=== PATIENT | male | born 1970 | race American Indian/Alaskan Native ===

== ENCOUNTER 2021-02-04 09:28 | Inpatient (IN) | payer MEDICAID ==
--- NOTE | 2021-02-05 10:12 | History and Physical Report ---
GP History & Physical - History of Present Illness Date of admission: 02/04/21 Date of Examination: 02/05/21 Reason for Admission: Danger to self, Failure of Outpatient Treatment, Severe anxiety/depression History of Present Illness: Morgan Ugarte is a 50y/o male patient who states he was admitted for playing [place]. The patient says since he lost his daughter two years ago he has not wanted to live without her and feels he would be better with her. He says he keeps "seeing her mangled face." The patient also says he hears voices of celebrities and his god-sisters. He verbalizes crack cocaine as his "preference." But states he uses meth, heroine and also vapes nicotine. PAST PSYCHIATRIC HISTORY: Diagnoses: Bipolar, schizophrenia Suicide attempts or Self-harm behavior: Yes Prior psychiatric hospitalizations: Yes Substance Abuse history: crack, cocaine, meth, nicotine, heroine Previous psychiatric medications tried: seroquel, risperidone Outpatient treatment: Yes PAST MEDICAL HISTORY: None reported or document Family Psychiatric History: None reported or documented SOCIAL HISTORY Marital Status: Living Arrangements: Lives with family Employment Status: Disabled Access to guns/weapons: Denies Education:Some college History of Abuse: Yes Legal History: Unknown REVIEW OF SYSTEMS Constitutional: Negative for weight loss ENT: Negative for stridor Respiratory: Negative for cough or hemoptysis All other systems reviewed and are negative MENTAL STATUS EXAMINATION General Appearance and Behavior: Age appropriate, good hygiene, wearing appropriate clothes. Cooperation: cooperative Psychomotor Behavior: Psychomotor normal Mood: Depressed Affect and affective range: congruent with stated mood Thought Process: obsessions Thought Content: SI, hallucinations Speech: Normal volume, Regular rate and rhythm, Suicidal Ideation: Yes Homicidal Ideation: Denies Hallucinations: Auditory Delusions: None Impulse Control: Poor Insight and Judgment: Poor Memory: limited Attention: Attentive Orientation: alert and oriented Assessment and Plan (1)Bipolar Disorder (2) Polysubstance Use Disorder Treatment Plan Patient admitted for inpatient psychiatric evaluation, medication adjustment and close monitoring The patient's behavior, mood, sleep and appetite will be closely monitored. Patient enrolled in individual and group therapeutic sessions and encouraged to attend. Patient provided with a safe and structured environment. Patient's physical health needs will be addressed by the Hospitalist. Hospitalist Consulted Labs including CBC, CMP, Lipid profile and Hemoglobin A1C levels ordered for baseline reference Social Assessment will be completed and the Front End Loader Operator will work with patient and family to ensure a suitable and safe disposition Medication adjustment will be made as clinically indicated Start Seroquel 100mg po BID Start Zoloft 25mg po daily Geodon 20mg IM prn agitation Usual Wellness Roman Catholic/Preservation: - Start Trazodone 50 mg po QHS & 50 mg po QHS PRN between 10 PM & 2 AM for insomnia - Start Melatonin 5 mg po QHS to promote circadian rhythm The patient agreed on the treatment plan, understood the risk, benefit, alternative treatment, potential consequence of no treatment, and gave informed consent. Estimated days: 7 Post hospital care: primary care provider, psychiatric provider Case staffed with Dr. Floyd Legal Status: Voluntary Reaction to Hospitalization: Accepting Medications and Allergies Allergies Allergy/AdvReac Type Severity Reaction Status Date / Time No Known Allergies Allergy Unverified 02/04/21 16:14 Results - Results Labs/Vitals: Last Vital Signs Temp 98.7 F 02/05/21 02:05 Pulse 62 02/05/21 02:05 Resp 18 02/05/21 02:05 BP 139/71 02/05/21 02:05 Pulse Ox 100 02/05/21 02:05 Physical Examination - Constitutional Vitals: Vital Signs Temp Pulse Resp BP Pulse Ox 98.7 F 62 18 139/71 100 02/05/21 02:05 02/05/21 02:05 02/05/21 02:05 02/05/21 02:05 02/05/21 02:05 Temperature -Last 24 Hours Temperature 98.7 F Mental Status Exam - Vital signs Last Vital Signs Temp 98.7 F 02/05/21 02:05 Pulse 62 02/05/21 02:05 Resp 18 02/05/21 02:05 BP 139/71 02/05/21 02:05 Pulse Ox 100 02/05/21 02:05 Physician Certification - Certification Statement Physician Certification Statement: This is an acknowledgement statement that MORGAN UGARTE is a 50 year old M who requires inpatient psychiatric admission for treatment which could reasonably be expected to improve the patient's condition for Estimated period of time patient will need to remain in the hospital: [ ] Plan for post-hospital care: [ ]
--- NOTE | 2021-02-05 10:55 | Consultation ---
Medications and Allergies Allergies Allergy/AdvReac Type Severity Reaction Status Date / Time No Known Allergies Allergy Unverified 02/04/21 16:14 Active Meds: Active Medications Quetiapine Fumarate (Quetiapine 100 Mg Tab) 100 mg PO BID [facility] Sertraline HCl (Sertraline 25 Mg Tab) 25 mg PO QDAY [facility] Ziprasidone (Ziprasidone Mesylate 20 Mg Vial) 20 mg IM Q4H PRN PRN Reason: Agitation Exam - Constitutional Vitals: Temp Pulse Resp BP Pulse Ox 98.7 F 62 18 139/71 100 02/05/21 02:05 02/05/21 02:05 02/05/21 02:05 02/05/21 02:05 02/05/21 02:05
[2021-02-05] MEDS: QUEtiapine 100 MG TAB PO SCH ×3 (11:50→21:31)
[2021-02-05] MEDS: SERTRALINE 25 MG TAB PO SCH ×2 (11:50→11:51)
[2021-02-06] MEDS: ZIPRASIDONE MESYLATE 20 MG VIAL IM PRN (07:28)
[2021-02-06 09:20] LABS: Basophils % (Auto) 0.2 % (0.0-1.8); Eosinophils # (Auto) 0.1 K/mm3 (0.0-0.4); Eosinophils % (Auto) 1.7 % (0.0-4.3); Hematocrit 37.9 % (35.5-45.6); Hemoglobin 12.8 gm/dl (11.8-15.2); Lymphocytes % (Auto) 25.8 % (13.4-35.0); Mean Corpuscular HGB Conc 34 % (32-34); Mean Corpuscular Volume 90 fl (84-94); Monocytes # (Auto) 0.3 K/mm3 (0.0-0.8); Monocytes % (Auto) 7.7 % (0.0-7.3); Platelet Count 279 K/mm3 (140-440); Red Blood Count 4.21 M/mm3 (3.65-5.03); Red Cell Distribution Width 15.8 % (13.2-15.2)
[2021-02-06 09:32] LABS: Alanine Aminotransferase 25 units/L (7-56); Albumin 4.1 g/dL (3.9-5); Blood Urea Nitrogen 9 mg/dL (9-20); Calcium 8.9 mg/dL (8.4-10.2); Chol/HDL Ratio 3.68 %; HDL Cholesterol 51 mg/dL (40-59); Hemolysis Index 9; LDL Cholesterol,Direct 122 mg/dL (50-130)
[2021-02-06 09:33] LABS: BUN/Creatinine Ratio 13
--- NOTE | 2021-02-06 11:55 | Progress Note ---
Subjective Date of service: 02/06/21 Principal diagnosis: Bipolar Disorder Subjective Comment: The patient was seen today. He is lying in bed. He says he's doing okay. The patient denies SI/HI, but states he's hearing voices telling him to harm himself. Staff says the patient has been pacing, agitated, and banging on windows. REVIEW OF SYSTEMS Constitutional: Negative for weight loss ENT: Negative for stridor Respiratory: Negative for cough or hemoptysis All other systems reviewed and are negative MENTAL STATUS EXAMINATION General Appearance and Behavior: Age appropriate, good hygiene, wearing appropriate clothes. Cooperation: cooperative Psychomotor Behavior: Psychomotor normal Mood: Depressed Affect and affective range: congruent with stated mood Thought Process: obsessions Thought Content: SI, hallucinations Speech: Normal volume, Regular rate and rhythm, Suicidal Ideation: Yes Homicidal Ideation: Denies Hallucinations: Auditory Delusions: None Impulse Control: Poor Insight and Judgment: Poor Memory: limited Attention: Attentive Orientation: alert and oriented Assessment and Plan (1)Bipolar Disorder (2) Polysubstance Use Disorder Treatment Plan Patient admitted for inpatient psychiatric evaluation, medication adjustment and close monitoring The patient's behavior, mood, sleep and appetite will be closely monitored. Patient enrolled in individual and group therapeutic sessions and encouraged to attend. Patient provided with a safe and structured environment. Patient's physical health needs will be addressed by the Hospitalist. Hospitalist Consulted Labs including CBC, CMP, Lipid profile and Hemoglobin A1C levels ordered for baseline reference Social Assessment will be completed and the Machine Operator Helper will work with patient and family to ensure a suitable and safe disposition Medication adjustment will be made as clinically indicated Increase Seroquel 150mg po BID Start Klonopin 0.25mg po BID X [address] 125mg po BID Usual Wellness Rastafari/Preservation: - Start Trazodone 50 mg po QHS & 50 mg po QHS PRN between 10 PM & 2 AM for insomnia - Start Melatonin 5 mg po QHS to promote circadian rhythm The patient agreed on the treatment plan, understood the risk, benefit, alternative treatment, potential consequence of no treatment, and gave informed consent. Estimated days: 7 Post hospital care: primary care provider, psychiatric provider Case staffed with Dr. Floyd Medications and Allergies Allergies Allergy/AdvReac Type Severity Reaction Status Date / Time No Known Allergies Allergy Unverified 02/04/21 16:14 Active Meds: Active Medications Quetiapine Fumarate (Quetiapine 100 Mg Tab) 100 mg PO BID [facility] Last Admin: 02/05/21 21:31 Dose: 100 mg Documented by: Sertraline HCl (Sertraline 25 Mg Tab) 25 mg PO QDAY [facility] Last Admin: 02/05/21 11:50 Dose: Not Given Documented by: Ziprasidone (Ziprasidone Mesylate 20 Mg Vial) 20 mg IM Q4H PRN PRN Reason: Agitation Last Admin: 02/06/21 07:28 Dose: 20 mg Documented by: Results - Results Labs/Vitals: Laboratory Last Values WBC 3.9 K/mm3 (4.5-11.0) L 02/04/21 08:00 RBC 4.21 M/mm3 (3.65-5.03) 02/04/21 08:00 Hgb 12.8 gm/dl (11.8-15.2) 02/04/21 08:00 Hct 37.9 % (35.5-45.6) 02/04/21 08:00 MCV 90 fl (84-94) 02/04/21 08:00 MCH 31 pg (28-32) 02/04/21 08:00 MCHC 34 % (32-34) 02/04/21 08:00 RDW 15.8 % (13.2-15.2) H 02/04/21 08:00 Plt Count 279 K/mm3 (140-440) 02/04/21 08:00 Lymph % (Auto) 25.8 % (13.4-35.0) 02/04/21 08:00 [place] % (Auto) 7.7 % (0.0-7.3) H 02/04/21 08:00 Eos % (Auto) 1.7 % (0.0-4.3) 02/04/21 08:00 Baso % (Auto) 0.2 % (0.0-1.8) 02/04/21 08:00 Lymph # (Auto) 1.0 K/mm3 (1.2-5.4) L 02/04/21 08:00 [place] # (Auto) 0.3 K/mm3 (0.0-0.8) 02/04/21 08:00 Eos # (Auto) 0.1 K/mm3 (0.0-0.4) 02/04/21 08:00 Baso # (Auto) 0.0 K/mm3 (0.0-0.1) 02/04/21 08:00 Seg Neutrophils % 64.6 % (40.0-70.0) 02/04/21 08:00 Seg Neutrophils # 2.5 K/mm3 (1.8-7.7) 02/04/21 08:00 Sodium 137 mmol/L (137-145) 02/04/21 08:00 Potassium 3.5 mmol/L (3.6-5.0) L 02/04/21 08:00 Chloride 101.1 mmol/L (98-107) 02/04/21 08:00 Carbon Dioxide 24 mmol/L (22-30) 02/04/21 08:00 Anion Gap 15 mmol/L 02/04/21 08:00 BUN 9 mg/dL (9-20) 02/04/21 08:00 Creatinine 0.7 mg/dL (0.8-1.3) L 02/04/21 08:00 Estimated GFR > 60 ml/min 02/04/21 08:00 BUN/Creatinine Ratio 13 % 02/04/21 08:00 Glucose 98 mg/dL (75-100) 02/04/21 08:00 Hemoglobin A1c 5.4 % (4-6) 02/04/21 08:00 Calcium 8.9 mg/dL (8.4-10.2) 02/04/21 08:00 Total Bilirubin 0.60 mg/dL (0.1-1.2) 02/04/21 08:00 AST 34 units/L (5-40) 02/04/21 08:00 ALT 25 units/L (7-56) 02/04/21 08:00 Alkaline Phosphatase 73 units/L (35-129) 02/04/21 08:00 Total Protein 7.1 g/dL (6.3-8.2) 02/04/21 08:00 Albumin 4.1 g/dL (3.9-5) 02/04/21 08:00 Albumin/Globulin Ratio 1.4 % 02/04/21 08:00 Triglycerides 79 mg/dL (2-149) 02/04/21 08:00 Cholesterol 188 mg/dL (50-199) 02/04/21 08:00 LDL Cholesterol Direct 122 mg/dL (50-130) 02/04/21 08:00 HDL Cholesterol 51 mg/dL (40-59) 02/04/21 08:00 Cholesterol/HDL Ratio 3.68 % 02/04/21 08:00 TSH 0.713 mlU/mL (0.270-4.200) 02/04/21 08:00 Last Vital Signs Temp 98.1 F 02/06/21 08:00 Pulse 72 02/06/21 08:00 Resp 16 02/06/21 08:00 BP 107/63 02/06/21 08:00 Pulse Ox 97 02/06/21 08:00
[2021-02-06] MEDS: DIVALPROEX DR 125 MG TAB PO SCH ×2 (12:35→21:25)
[2021-02-06] MEDS: SERTRALINE 25 MG TAB PO SCH (12:36)
[2021-02-06] MEDS: QUEtiapine 100 MG TAB PO SCH ×3 (12:36→21:26)
[2021-02-06] MEDS: clonazePAM 0.5 MG TAB PO SCH ×2 (12:37→21:27)
--- NOTE | 2021-02-07 10:43 | Progress Note ---
Subjective Date of service: 02/07/21 Principal diagnosis: Bipolar Disorder Subjective Comment: The patient was seen today.He says he slept good. The nurse today did agree that the patient had a much better night, but says yesterday the patient was acting out. The patient denies SI/HI. He verbalizes auditory hallucinations, but states they are not harmful. He says "I've been hearing that since I was 28." I ask the patient why was he refusing his meds sometimes, he says "I don't want to be ove r-medicated." He then says "I'll take them." REVIEW OF SYSTEMS Constitutional: Negative for weight loss ENT: Negative for stridor Respiratory: Negative for cough or hemoptysis All other systems reviewed and are negative MENTAL STATUS EXAMINATION General Appearance and Behavior: Age appropriate, good hygiene, wearing appropriate clothes. Cooperation: cooperative Psychomotor Behavior: Psychomotor normal Mood: Depressed Affect and affective range: congruent with stated mood Thought Process: obsessions Thought Content: SI, hallucinations Speech: Normal volume, Regular rate and rhythm, Suicidal Ideation: Yes Homicidal Ideation: Denies Hallucinations: Auditory Delusions: None Impulse Control: Poor Insight and Judgment: Poor Memory: limited Attention: Attentive Orientation: alert and oriented Assessment and Plan (1)Bipolar Disorder (2) Polysubstance Use Disorder Treatment Plan Patient admitted for inpatient psychiatric evaluation, medication adjustment and close monitoring The patient's behavior, mood, sleep and appetite will be closely monitored. Patient enrolled in individual and group therapeutic sessions and encouraged to attend. Patient provided with a safe and structured environment. Patient's physical health needs will be addressed by the Hospitalist. Hospitalist Consulted Labs including CBC, CMP, Lipid profile and Hemoglobin A1C levels ordered for baseline reference Social Assessment will be completed and the Blood Bank Laboratory Technologist will work with patient and family to ensure a suitable and safe disposition Medication adjustment will be made as clinically indicated Continue Seroquel 150mg po BID Continue Klonopin 0.25mg po BID X [address] 125mg po BID Usual Wellness Christianity/Preservation: - Start Trazodone 50 mg po QHS & 50 mg po QHS PRN between 10 PM & 2 AM for insomnia - Start Melatonin 5 mg po QHS to promote circadian rhythm The patient agreed on the treatment plan, understood the risk, benefit, alternative treatment, potential consequence of no treatment, and gave informed consent. Estimated days: 7 Post hospital care: primary care provider, psychiatric provider Case staffed with Dr. Floyd Medications and Allergies Allergies Allergy/AdvReac Type Severity Reaction Status Date / Time No Known Allergies Allergy Unverified 02/04/21 16:14 Active Meds: Active Medications Clonazepam (Clonazepam 0.5 Mg Tab) 0.25 mg PO BID [facility] Stop: 02/09/21 06:00 Last Admin: 02/06/21 21:27 Dose: 0.25 mg Documented by: Divalproex Sodium (Divalproex Dr 125 Mg Tab) 125 mg PO BID [facility] Last Admin: 02/06/21 21:25 Dose: Not Given Documented by: Quetiapine Fumarate (Quetiapine 100 Mg Tab) 150 mg PO BID [facility] Last Admin: 02/06/21 21:26 Dose: 150 mg Documented by: Sertraline HCl (Sertraline 25 Mg Tab) 25 mg PO QDAY [facility] Last Admin: 02/06/21 12:36 Dose: 25 mg Documented by: Ziprasidone (Ziprasidone Mesylate 20 Mg Vial) 20 mg IM Q4H PRN PRN Reason: Agitation Last Admin: 02/06/21 07:28 Dose: 20 mg Documented by: Results - Results Labs/Vitals: Laboratory Last Values WBC 3.9 K/mm3 (4.5-11.0) L 02/04/21 08:00 RBC 4.21 M/mm3 (3.65-5.03) 02/04/21 08:00 Hgb 12.8 gm/dl (11.8-15.2) 02/04/21 08:00 Hct 37.9 % (35.5-45.6) 02/04/21 08:00 MCV 90 fl (84-94) 02/04/21 08:00 MCH 31 pg (28-32) 02/04/21 08:00 MCHC 34 % (32-34) 02/04/21 08:00 RDW 15.8 % (13.2-15.2) H 02/04/21 08:00 Plt Count 279 K/mm3 (140-440) 02/04/21 08:00 Lymph % (Auto) 25.8 % (13.4-35.0) 02/04/21 08:00 [place] % (Auto) 7.7 % (0.0-7.3) H 02/04/21 08:00 Eos % (Auto) 1.7 % (0.0-4.3) 02/04/21 08:00 Baso % (Auto) 0.2 % (0.0-1.8) 02/04/21 08:00 Lymph # (Auto) 1.0 K/mm3 (1.2-5.4) L 02/04/21 08:00 [place] # (Auto) 0.3 K/mm3 (0.0-0.8) 02/04/21 08:00 Eos # (Auto) 0.1 K/mm3 (0.0-0.4) 02/04/21 08:00 Baso # (Auto) 0.0 K/mm3 (0.0-0.1) 02/04/21 08:00 Seg Neutrophils % 64.6 % (40.0-70.0) 02/04/21 08:00 Seg Neutrophils # 2.5 K/mm3 (1.8-7.7) 02/04/21 08:00 Sodium 137 mmol/L (137-145) 02/04/21 08:00 Potassium 3.5 mmol/L (3.6-5.0) L 02/04/21 08:00 Chloride 101.1 mmol/L (98-107) 02/04/21 08:00 Carbon Dioxide 24 mmol/L (22-30) 02/04/21 08:00 Anion Gap 15 mmol/L 02/04/21 08:00 BUN 9 mg/dL (9-20) 02/04/21 08:00 Creatinine 0.7 mg/dL (0.8-1.3) L 02/04/21 08:00 Estimated GFR > 60 ml/min 02/04/21 08:00 BUN/Creatinine Ratio 13 % 02/04/21 08:00 Glucose 98 mg/dL (75-100) 02/04/21 08:00 Hemoglobin A1c 5.4 % (4-6) 02/04/21 08:00 Calcium 8.9 mg/dL (8.4-10.2) 02/04/21 08:00 Total Bilirubin 0.60 mg/dL (0.1-1.2) 02/04/21 08:00 AST 34 units/L (5-40) 02/04/21 08:00 ALT 25 units/L (7-56) 02/04/21 08:00 Alkaline Phosphatase 73 units/L (35-129) 02/04/21 08:00 Total Protein 7.1 g/dL (6.3-8.2) 02/04/21 08:00 Albumin 4.1 g/dL (3.9-5) 02/04/21 08:00 Albumin/Globulin Ratio 1.4 % 02/04/21 08:00 Triglycerides 79 mg/dL (2-149) 02/04/21 08:00 Cholesterol 188 mg/dL (50-199) 02/04/21 08:00 LDL Cholesterol Direct 122 mg/dL (50-130) 02/04/21 08:00 HDL Cholesterol 51 mg/dL (40-59) 02/04/21 08:00 Cholesterol/HDL Ratio 3.68 % 02/04/21 08:00 TSH 0.713 mlU/mL (0.270-4.200) 02/04/21 08:00 Last Vital Signs Temp 98.3 F 02/06/21 22:00 Pulse 69 02/06/21 22:00 Resp 18 02/06/21 22:00 BP 122/71 02/06/21 22:00 Pulse Ox 96 02/06/21 22:00
[2021-02-07] MEDS: clonazePAM 0.5 MG TAB PO SCH ×2 (12:54→21:16)
[2021-02-07] MEDS: DIVALPROEX DR 125 MG TAB PO SCH ×2 (12:54→21:18)
[2021-02-07] MEDS: SERTRALINE 25 MG TAB PO SCH (12:54)
[2021-02-07] MEDS: QUEtiapine 100 MG TAB PO SCH ×2 (12:55→21:15)
--- NOTE | 2021-02-07 13:41 | XRay Report ---
CHEST 1 VIEW 02/07/2021 12:22 PM INDICATION / CLINICAL INFORMATION: r/o TB. COMPARISON: None available. FINDINGS: SUPPORT DEVICES: None. HEART / MEDIASTINUM: No significant abnormality. LUNGS / PLEURA: Linear opacity in left lung apex is nonspecific, possibly scarring versus postsurgica l changes. No pneumothorax. ADDITIONAL FINDINGS: No significant additional findings. IMPRESSION: 1. Linear opacity in the left lung apex may represent scarring versus postsurgical changes. Recommend clinical correlation. Otherwise, lungs are clear. Signer Name: Chong Fritz MD Signed: 02/07/2021 1:37 PM Workstation Name: [id number]
[2021-02-08] MEDS: ZIPRASIDONE MESYLATE 20 MG VIAL IM PRN (00:35)
[2021-02-08 08:25] VITALS: BP 128/77
--- NOTE | 2021-02-08 09:51 | Discharge Summary ---
Providers - Providers Date of Admission: 02/04/21 23:34 Date of discharge: 02/08/21 Attending physician: MIGUEL GARCIA MD 02/04/21 16:07 Consult to Physician [CONS] Routine Comment: Consulting Provider: JONY BEYER Physician Instructions: Reason For Exam: manage medical conditions Primary care physician: GRID MOLDER Hospitalization Reason for admission: psychosis Admitting Diagnosis: F31.9 - BIPOLAR DISORDER, UNSPECIFIED Condition: Stable Hospital course: The patient was provided inpatient psychiatric treatment with safe and supportive care, medication adjustment, adverse effect monitoring, medical evaluations, medical treatments, assessment and psycho-education. The patient's mood, cognition, behavior, moral support are improved and stabilized. St the time of discharge, the patient had no endangering behavior and no debilitating adverse effects. The patient agreed on potential consequences of no treatment and gave informed consent. Disposition: 01 HOME / SELF CARE / HOMELESS Time spent for discharge: 35 Allergies/Adverse Reactions: Allergies No Known Allergies Allergy (Unverified 02/04/21 16:14) Vital Signs: Last Vital Signs Temp 98.4 F 02/08/21 08:14 Pulse 77 02/08/21 08:14 Resp 18 02/08/21 08:14 BP 128/77 02/08/21 08:14 Pulse Ox 99 02/08/21 08:14 Last Lab: Laboratory Last Values WBC 3.9 K/mm3 (4.5-11.0) L 02/04/21 08:00 RBC 4.21 M/mm3 (3.65-5.03) 02/04/21 08:00 Hgb 12.8 gm/dl (11.8-15.2) 02/04/21 08:00 Hct 37.9 % (35.5-45.6) 02/04/21 08:00 MCV 90 fl (84-94) 02/04/21 08:00 MCH 31 pg (28-32) 02/04/21 08:00 MCHC 34 % (32-34) 02/04/21 08:00 RDW 15.8 % (13.2-15.2) H 02/04/21 08:00 Plt Count 279 K/mm3 (140-440) 02/04/21 08:00 Lymph % (Auto) 25.8 % (13.4-35.0) 02/04/21 08:00 [place] % (Auto) 7.7 % (0.0-7.3) H 02/04/21 08:00 Eos % (Auto) 1.7 % (0.0-4.3) 02/04/21 08:00 Baso % (Auto) 0.2 % (0.0-1.8) 02/04/21 08:00 Lymph # (Auto) 1.0 K/mm3 (1.2-5.4) L 02/04/21 08:00 [place] # (Auto) 0.3 K/mm3 (0.0-0.8) 02/04/21 08:00 Eos # (Auto) 0.1 K/mm3 (0.0-0.4) 02/04/21 08:00 Baso # (Auto) 0.0 K/mm3 (0.0-0.1) 02/04/21 08:00 Seg Neutrophils % 64.6 % (40.0-70.0) 02/04/21 08:00 Seg Neutrophils # 2.5 K/mm3 (1.8-7.7) 02/04/21 08:00 Sodium 137 mmol/L (137-145) 02/04/21 08:00 Potassium 3.5 mmol/L (3.6-5.0) L 02/04/21 08:00 Chloride 101.1 mmol/L (98-107) 02/04/21 08:00 Carbon Dioxide 24 mmol/L (22-30) 02/04/21 08:00 Anion Gap 15 mmol/L 02/04/21 08:00 BUN 9 mg/dL (9-20) 02/04/21 08:00 Creatinine 0.7 mg/dL (0.8-1.3) L 02/04/21 08:00 Estimated GFR > 60 ml/min 02/04/21 08:00 BUN/Creatinine Ratio 13 % 02/04/21 08:00 Glucose 98 mg/dL (75-100) 02/04/21 08:00 Hemoglobin A1c 5.4 % (4-6) 02/04/21 08:00 Calcium 8.9 mg/dL (8.4-10.2) 02/04/21 08:00 Total Bilirubin 0.60 mg/dL (0.1-1.2) 02/04/21 08:00 AST 34 units/L (5-40) 02/04/21 08:00 ALT 25 units/L (7-56) 02/04/21 08:00 Alkaline Phosphatase 73 units/L (35-129) 02/04/21 08:00 Total Protein 7.1 g/dL (6.3-8.2) 02/04/21 08:00 Albumin 4.1 g/dL (3.9-5) 02/04/21 08:00 Albumin/Globulin Ratio 1.4 % 02/04/21 08:00 Triglycerides 79 mg/dL (2-149) 02/04/21 08:00 Cholesterol 188 mg/dL (50-199) 02/04/21 08:00 LDL Cholesterol Direct 122 mg/dL (50-130) 02/04/21 08:00 HDL Cholesterol 51 mg/dL (40-59) 02/04/21 08:00 Cholesterol/HDL Ratio 3.68 % 02/04/21 08:00 TSH 0.713 mlU/mL (0.270-4.200) 02/04/21 08:00 Core Measure Documentation - Palliative Care Palliative Care/ Comfort Measures: Not Applicable - Core Measures Any of the following diagnoses?: none Exam - Constitutional Vitals: Temp Pulse Resp BP Pulse Ox 98.4 F 77 18 128/77 99 02/08/21 08:14 02/08/21 08:14 02/08/21 08:14 02/08/21 08:14 02/08/21 08:14 General appearance: Present: no acute distress - EENT Eyes: Present: PERRL, EOM intact ENT: hearing intact, clear oral mucosa - Neck Neck: Present: supple, normal ROM - Respiratory Respiratory effort: normal Plan Activity: advance as tolerated Weight Bearing Status: Weight Bear as Tolerated Care Plan Goals: maintain good and stable mental health Plan of Treatment: The patient should be compliant with medications, not to use drugs, and not to drink alcohol. The patient understands that if suicidal ideas, homicidal ideas or any endangering feeling arise, the patient should seek assistance including, but not limited to crisis hotline, and emergency room. Assessment: Bipolar Disorder Follow up with: PRIMARY CARE, [Primary Care Provider] - [address]: D[address] [Depakote Dr] 125 mg PO BID #60 tablet QUEtiapine [SEROquel] 150 mg PO BID #90 tablet Sertraline [Zoloft] 25 mg PO QDAY #30 tablet
--- NOTE | 2021-02-08 10:44 | Progress Note ---
Hospitalist Physical - Constitutional Vitals: Temp Pulse Resp BP Pulse Ox 98.4 F 77 18 128/77 99 02/08/21 08:14 02/08/21 08:14 02/08/21 08:14 02/08/21 08:14 02/08/21 08:14 General appearance: Present: no acute distress Results - Labs CBC & Chem 7: 02/04/21 08:00 02/04/21 08:00 Labs: Laboratory Last Values WBC 3.9 K/mm3 (4.5-11.0) L 02/04/21 08:00 RBC 4.21 M/mm3 (3.65-5.03) 02/04/21 08:00 Hgb 12.8 gm/dl (11.8-15.2) 02/04/21 08:00 Hct 37.9 % (35.5-45.6) 02/04/21 08:00 MCV 90 fl (84-94) 02/04/21 08:00 MCH 31 pg (28-32) 02/04/21 08:00 MCHC 34 % (32-34) 02/04/21 08:00 RDW 15.8 % (13.2-15.2) H 02/04/21 08:00 Plt Count 279 K/mm3 (140-440) 02/04/21 08:00 Lymph % (Auto) 25.8 % (13.4-35.0) 02/04/21 08:00 Cowley % (Auto) 7.7 % (0.0-7.3) H 02/04/21 08:00 Eos % (Auto) 1.7 % (0.0-4.3) 02/04/21 08:00 Baso % (Auto) 0.2 % (0.0-1.8) 02/04/21 08:00 Lymph # (Auto) 1.0 K/mm3 (1.2-5.4) L 02/04/21 08:00 Cowley # (Auto) 0.3 K/mm3 (0.0-0.8) 02/04/21 08:00 Eos # (Auto) 0.1 K/mm3 (0.0-0.4) 02/04/21 08:00 Baso # (Auto) 0.0 K/mm3 (0.0-0.1) 02/04/21 08:00 Seg Neutrophils % 64.6 % (40.0-70.0) 02/04/21 08:00 Seg Neutrophils # 2.5 K/mm3 (1.8-7.7) 02/04/21 08:00 Sodium 137 mmol/L (137-145) 02/04/21 08:00 Potassium 3.5 mmol/L (3.6-5.0) L 02/04/21 08:00 Chloride 101.1 mmol/L (98-107) 02/04/21 08:00 Carbon Dioxide 24 mmol/L (22-30) 02/04/21 08:00 Anion Gap 15 mmol/L 02/04/21 08:00 BUN 9 mg/dL (9-20) 02/04/21 08:00 Creatinine 0.7 mg/dL (0.8-1.3) L 02/04/21 08:00 Estimated GFR > 60 ml/min 02/04/21 08:00 BUN/Creatinine Ratio 13 % 02/04/21 08:00 Glucose 98 mg/dL (75-100) 02/04/21 08:00 Hemoglobin A1c 5.4 % (4-6) 02/04/21 08:00 Calcium 8.9 mg/dL (8.4-10.2) 02/04/21 08:00 Total Bilirubin 0.60 mg/dL (0.1-1.2) 02/04/21 08:00 AST 34 units/L (5-40) 02/04/21 08:00 ALT 25 units/L (7-56) 02/04/21 08:00 Alkaline Phosphatase 73 units/L (35-129) 02/04/21 08:00 Total Protein 7.1 g/dL (6.3-8.2) 02/04/21 08:00 Albumin 4.1 g/dL (3.9-5) 02/04/21 08:00 Albumin/Globulin Ratio 1.4 % 02/04/21 08:00 Triglycerides 79 mg/dL (2-149) 02/04/21 08:00 Cholesterol 188 mg/dL (50-199) 02/04/21 08:00 LDL Cholesterol Direct 122 mg/dL (50-130) 02/04/21 08:00 HDL Cholesterol 51 mg/dL (40-59) 02/04/21 08:00 Cholesterol/HDL Ratio 3.68 % 02/04/21 08:00 TSH 0.713 mlU/mL (0.270-4.200) 02/04/21 08:00 Joshi/IV: Voiding Method Toilet Active Medications - Current Medications Current Medications: Generic Name Dose Route Start Last Admin Trade Name Freq PRN Reason Stop Dose Admin Clonazepam 0.25 mg 02/06/21 12:00 02/07/21 21:16 Clonazepam 0.5 Mg Tab PO 02/09/21 06:00 0.25 mg BID RADHAMES Administration Divalproex Sodium 125 mg 02/06/21 12:00 02/07/21 21:[address] 125 Mg Tab PO Not Given BID RADHAMES Quetiapine Fumarate 150 mg 02/06/21 12:00 02/07/21 21:15 Quetiapine 100 Mg Tab PO 150 mg BID RADHAMES Administration Sertraline HCl 25 mg 02/05/21 11:00 02/07/21 12:54 Sertraline 25 Mg Tab PO 25 mg QDAY RADHAMES Administration
[2021-02-08] MEDS: DIVALPROEX DR 125 MG TAB PO SCH (11:46)
[2021-02-08] MEDS: QUEtiapine 100 MG TAB PO SCH (11:47)
[2021-02-08] MEDS: SERTRALINE 25 MG TAB PO SCH (11:47)
[2021-02-08] MEDS: clonazePAM 0.5 MG TAB PO SCH (11:47)
== END 2021-02-08 11:45 | disposition home or self-care (01) | DRG 885 ==
LOC: 3A 09:28 → UNDOADMIN 09:28 → 5A 23:34
PROVIDERS: ADMIT Psychiatry & Neurology Psychiatry; ATTEND Psychiatry & Neurology Psychiatry
DX: F31.9 Bipolar disorder, unspecified (principal); Z20.822 Contact with and (suspected) exposure to COVID-19; F19.90 Other psychoactive substance use, unspecified, uncomplicated
CPT/HCPCS: 36415; 71045; 80053; 80061; 83036; 84443; 85025; G0378; J3486; U0003